=== PATIENT | female | born 1955 | race Caucasian/White ===

== ENCOUNTER → 2019-05-05 | Outpatient (CLI) | payer OTHER ==
--- NOTE | 2019-05-05 14:23 | RAD ---
EXAM DESCRIPTION: Shoulder,Left 2 or More Views CLINICAL HISTORY: PAIN IN LEFT SHOULDER COMPARISON: None. 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 No fracture or dislocation is seen. Glenohumeral joint is unremarkable. IMPRESSION: Minimal left AC joint arthritis is observed. Exam is otherwise unremarkable. Electronically signed by: Ameya Saavedra MD 05/05/2019 2:21 PM CDT
== END ==
LOC: RAD 09:25
PROVIDERS: ATTEND Orthopaedic Surgery
DX: M19.012 Primary osteoarthritis, left shoulder (principal)